=== PATIENT | female | born 1970 | race Caucasian/White ===

== ENCOUNTER 2017-09-03 07:52 | Day surgery (SDC) | payer OTHER ==
[~2017-09-03 07:52] MED LIST: CEFAZOLIN 2 GM/50 ML (PMX) 50 ML IVPB; METOCLOPRAMIDE 10 MG INJ; SOD CHLORIDE 0.9% 1,000 ML IV
[2017-09-03] MEDS ORDERED: PROPOFOL 20 ML (12:51)
[2017-09-03] MEDS ORDERED: LIDOCAINE 2% (SDV) 5 ML INJ (12:51)
[2017-09-03] MEDS ORDERED: MEPERIDINE 100 MG INJ (12:51)
[2017-09-03] MEDS ORDERED: CEFAZOLIN 1 GM INJ (12:51)
[2017-09-03] MEDS: BUPIVACAINE 0.25% (MPF) 30 ML INJ (13:00)
[2017-09-03] MEDS ORDERED: GLYCOPYRROLATE 0.4 MG INJ (13:17)
[2017-09-03] MEDS ORDERED: ONDANSETRON 4 MG INJ (13:18)
[2017-09-03] MEDS ORDERED: OXYCODONE/ACETAMINOPHEN (5/325) TAB PO ×2 (13:30)
[2017-09-03] MEDS ORDERED: hydrALAzine 20 MG INJ IV (13:30)
[2017-09-03] MEDS ORDERED: FENTAnyl 50 MCG/ML VIAL IV ×3 (13:30)
[2017-09-03] MEDS ORDERED: DIPHENHYDRAMINE 50 MG INJ IV (13:30)
[2017-09-03] MEDS ORDERED: METOCLOPRAMIDE 10 MG INJ IV (13:30)
[2017-09-03] MEDS ORDERED: EPHEDrine SULFATE 50 MG/5 ML SYG IV (13:30)
[2017-09-03] MEDS ORDERED: MIDAZOLAM 1 MG/ML 2 ML INJ IV (13:30)
[2017-09-03] MEDS ORDERED: MEPERIDINE 25 MG INJ IV (13:30)
[2017-09-03] MEDS ORDERED: LABETALOL HCL 20MG INJ IV (13:30)
[2017-09-03] MEDS ORDERED: HYDROmorphONE (0.2 MG/ML) 10ML SYG IV ×3 (13:30)
[2017-09-03] MEDS ORDERED: ONDANSETRON 4 MG INJ IV (13:30)
[2017-09-03] MEDS ORDERED: HYDROCODONE/APAP (5/325) TAB PO (14:00)
== END 2017-09-03 16:00 | disposition home or self-care (01) ==
LOC: SDS 07:52
DX: N60.92 Unspecified benign mammary dysplasia of left breast (principal); L90.5 Scar conditions and fibrosis of skin
CPT/HCPCS: 14000; 84703; 88307